=== PATIENT | male | born 1990 | race Caucasian/White ===

== ENCOUNTER 2020-12-14 13:30 | Emergency (ER) | payer MEDICAID, OTHER ==
[~2020-12-14] VITALS: Ht 182.9 cm; Wt 136.1 kg
[2020-12-14] MEDS ORDERED: MORPHINE SULFATE 4 MG/1 ML DISP.SYRIN IM ONE (14:00)
[2020-12-14] MEDS ORDERED: KETOROLAC TROMETHAMINE 60 MG INJ IM ONE ×2 (14:00→14:16)
[2020-12-14] MEDS ORDERED: MORPHINE SULFATE 2 MG/1 ML DISP.SYRIN ONE (14:16)
[2020-12-14] MEDS ORDERED: MORPHINE SULFATE 4 MG/1 ML DISP.SYRIN ONE (14:16)
[2020-12-14] MEDS ORDERED: CYCL10TA9 PO (16:09)
[2020-12-14] MEDS ORDERED: NAPR-1164 PO (16:09)
[2020-12-14 16:25] VITALS: BP 128/80
== END 2020-12-14 16:26 | disposition home or self-care (01) ==
LOC: ER 13:30
DX: M54.5 Low back pain (principal); Z87.828 Personal history of other (healed) physical injury and trauma
CPT/HCPCS: 96372 ×2; 99284; J1885; J2270 ×2; A4663